=== PATIENT | male | born 1940 | race Caucasian/White ===

== ENCOUNTER 2018-06-13 16:47 | Emergency (ER) | payer OTHER ==
[~2018-06-13] VITALS: Ht 177.8 cm; Wt 90.7 kg
--- NOTE | 2018-06-13 16:50 | NUR ---
Patient to ER h2 for evaluation.
[2018-06-13 16:55] VITALS: BP_SYST 146
--- NOTE | 2018-06-13 16:55 | NUR ---
Pt BIB [facility] for medical clearance due to pt having DM and HTN. Pt reports no complaints/pain at this time. Breathing even and unlabored. No other injuries/complaints per pt/noted. Will continue to monitor.
--- NOTE | 2018-06-13 17:08 | NUR ---
ER at bedside examining patient.
--- NOTE | 2018-06-13 17:21 | NUR ---
ER Dr. Johnson at bedside examining patient.
[2018-06-13 17:29] VITALS: BP_SYST 138
--- NOTE | 2018-06-13 17:32 | NUR ---
Patient given written and verbal discharge instructions and verbalizes understanding. ER MD Johnson discussed with patient the results and treatment provided. Patient in stable condition. ID arm band removed. No Rx given. Patient educated on pain management and to follow up with PMD. Pain Scale 0. Opportunity for questions provided and answered. Medication side effect fact sheet provided.
== END 2018-06-13 17:32 ==
LOC: SED 16:47
DX: Z02.89 Encounter for other administrative examinations (principal); E11.9 Type 2 diabetes mellitus without complications; I10 Essential (primary) hypertension
CPT/HCPCS: 82962; 99283